=== PATIENT | female | born 1945 | race Caucasian/White ===

== ENCOUNTER 2016-08-18 22:57 | Emergency (ER) | payer OTHER, BC ==
[~2016-08-18] VITALS: Ht 170.2 cm; Wt 93.2 kg
[2016-08-19] MEDS ORDERED: NORCO 5/3251 TABLET PO (00:18)
[2016-08-19] MEDS ORDERED: ROBAXIN750 MG PO (00:18)
[2016-08-19 00:35] VITALS: BP 164/82
== END 2016-08-19 00:36 | disposition home or self-care (01) ==
LOC: EXP 22:57 → EME 22:57 → EXP 08-19 00:36
DX: M75.31 Calcific tendinitis of right shoulder (principal); I10 Essential (primary) hypertension; E78.5 Hyperlipidemia, unspecified; E11.9 Type 2 diabetes mellitus without complications
CPT/HCPCS: 73030; 99281; 99283

== ENCOUNTER 2017-11-10 13:49 | Observation (INO) | payer OTHER, BC ==
[~2017-11-10] VITALS: Ht 170.2 cm; Wt 84.0 kg
[~2017-11-10 13:49] MED LIST: NORCO 5/3251 TABLET PO; ROBAXIN750 MG PO
[2017-11-10 15:45] LABS: HEMOGLOBIN 14.9 G/DL (11.9-15.5); MCH 27.9 PG (29.0-34.0); MCHC 33.9 G/DL (30.0-36.0); MCV 82.4 FL (83-99); PLATELET COUNT 267 K/uL (156-360); RBC DIS.WIDTH-SD 36.1 % (39-53); RED BLOOD COUNT 5.34 M/uL (3.80-5.20); WHITE BLOOD COUNT 6.8 K/uL (4.1-10.2)
[2017-11-10 16:27] LABS: CHLORIDE 93 MEQ/L (99-109); CREATININE 1.1 MG/DL (0.6-1.3); GFR ESTIMATE (CALCULATED) 52 mL/min/; POTASSIUM 4.4 MEQ/L (3.7-5.4); SODIUM 130 MEQ/L (136-147); UREA NITROGEN (BUN) 22 mg/dL (9-23)
[2017-11-10 16:33] LABS: GLUCOSE 429 mg/dL (70-99)
[2017-11-10 16:34] LABS: APPEARANCE CLEAR ((CLEAR)); BILIRUBIN NEGATIVE; BLOOD NEGATIVE; COLOR YELLOW ((YELLOW)); GLUCOSE (STRIP) >=500; KETONES NEGATIVE; LEUKOCYTES SMALL; NITRITE NEGATIVE; PROTEIN (STRIP) 30; SPECIFIC GRAVITY 1.021 (1.000-1.030); UROBILINOGEN 0.2 MG/DL (0.2-1.0)
[2017-11-10 16:44] LABS: BACTERIA RARE /HPF; EPITHELIAL CELLS RARE /HPF; HYALINE CASTS 0-5 /LPF; MUCUS NONE SEEN /LPF; RED BLOOD CELLS 0-5 /HPF (0-5); UCUL ADDED? YES; WHITE BLOOD CELLS 20-30 /HPF (0-5)
[2017-11-10 17:09] LABS: CARBON DIOXIDE (BICARBONATE) 27.9 MEQ/L (20-31)
[2017-11-10 17:17] LABS: TROP-I INTERPRETATION NEGATIVE; TROPONIN-I < 0.01 ng/mL (0.0-0.30)
[2017-11-10] MEDS ORDERED: SIMVASTATIN40 MG PO (18:05)
[2017-11-10] MEDS ORDERED: NORVASC10 MG PO (18:05)
[2017-11-10] MEDS ORDERED: FISH OIL 1,0001 EAC7 PO (18:06)
[2017-11-10] MEDS ORDERED: LOSARTAN-HCTZ1 EAC1 PO (18:06)
[2017-11-10] MEDS ORDERED: BASAGLAR K100 UNIT/1 SC (18:06)
[2017-11-10] MEDS ORDERED: LO-DOSE ASPIRIN81 M1 PO (18:06)
[2017-11-10] MEDS ORDERED: FLONASE16 G1 BOTH NARES (18:06)
[2017-11-10] MEDS ORDERED: NOVOLOG 10100 UNITS/ SC (18:06)
[2017-11-10] MEDS ORDERED: ADVIL,NUPRIN,M200 MG PO (18:07)
[2017-11-10 21:04] LABS: HDL CHOLESTEROL 32 MG/DL (Desirable>=50); LDL CHOLESTEROL 169 mg/dL (Desirable<100); NON-HDL CHOLESTEROL 227 mg/dL (Desirable<160); TOTAL CHOLESTEROL 259 mg/dL (Desirable<200); TRIGLYCERIDES 290 MG/DL (Normal: <150)
[2017-11-11 04:24] VITALS: BP 130/60
[2017-11-11 05:34] LABS: BASOPHIL (%) 0.9 % (0-1); BASOPHIL COUNT 0.1 K/uL (0-0.1); EOSINOPHIL (%) 1.5 % (0-5); EOSINOPHIL COUNT 0.1 K/uL (0-0.3); HEMATOCRIT 39.8 % (36.0-46.0); HEMOGLOBIN 13.4 G/DL (11.9-15.5); IMMATURE GRANULOCYTE (%) 0.2 % (0.0-0.7); LYMPHOCYTE (%) 32.6 % (15-42); LYMPHOCYTE COUNT 2.8 K/uL (1.0-2.8); MCH 28.1 PG (29.0-34.0); MCHC 33.7 G/DL (30.0-36.0); MCV 83.4 FL (83-99); MONOCYTE (%) 8.3 % (3-12); MONOCYTE COUNT 0.7 K/uL (0-0.8); NEUTROPHIL (%) 56.5 % (45-76); NEUTROPHIL COUNT 4.9 K/uL (1.8-6.4); PLATELET COUNT 248 K/uL (156-360); RBC DIS.WIDTH-CV 12.1 % (11.8-14.6); RBC DIS.WIDTH-SD 36.9 % (39-53); RED BLOOD COUNT 4.77 M/uL (3.80-5.20); WHITE BLOOD COUNT 8.6 K/uL (4.1-10.2)
[2017-11-11 05:42] LABS: CHLORIDE 100 MEQ/L (99-109); GFR ESTIMATE (CALCULATED) 58 mL/min/; SODIUM 136 MEQ/L (136-147); UREA NITROGEN (BUN) 18 mg/dL (9-23)
[2017-11-11 06:08] LABS: GLUCOSE 142 mg/dL (70-99); POTASSIUM 3.1 MEQ/L (3.7-5.4)
[2017-11-11 07:43] VITALS: BP 141/65
[2017-11-11 09:41] LABS: MAGNESIUM 1.6 mg/dl (1.3-2.7)
[2017-11-11] MEDS ORDERED: NOVOLOG 10100 UNITS/ SC (14:59)
[2017-11-11] MEDS ORDERED: KEFLEX500 MG PO (15:00)
[2017-11-11] MEDS ORDERED: BASAGLAR K100 UNIT/1 SC (15:01)
[2017-11-11 16:50] VITALS: BP 170/74
[2017-11-12 10:56] LABS: HEMOGLOBIN A1c (GLYCOHEMOGLOB) 13.7 % (Below 5.7)
== END 2017-11-11 18:07 | disposition home or self-care (01) ==
LOC: EME 13:49 → EDOF 19:43 → 4SOUTH 19:43 → ENRESERV 19:48 → 4SOUTH 22:13
PROVIDERS: Internal Medicine; Nurse Practitioner Family
DX: G45.9 Transient cerebral ischemic attack, unspecified (principal); M25.512 Pain in left shoulder; F40.240 Claustrophobia; E86.0 Dehydration; E87.1 Hypo-osmolality and hyponatremia; E11.65 Type 2 diabetes mellitus with hyperglycemia; I10 Essential (primary) hypertension; E78.5 Hyperlipidemia, unspecified; R60.0 Localized edema; Z90.49 Acquired absence of other specified parts of digestive tract; Z98.1 Arthrodesis status; Z87.442 Personal history of urinary calculi; Z96.642 Presence of left artificial hip joint; Z82.49 Family history of ischemic heart disease and other diseases of the circulatory system; Z82.5 Family history of asthma and other chronic lower respiratory diseases
CPT/HCPCS: 70450; 70491; 71046; 73201; 80048; 80061; 81003; 82803; 82948; 83036; 83735; 84484; 85025; 85027; 87086; 92523 GN; 93005; 93306; 93880; 99281; 99285; G0378; G8999 GN CH; G9158 GN CH; G9186 GN CH; J0696; J1644; J7030